=== PATIENT | female | born 1955 | race Caucasian/White ===

== ENCOUNTER 2018-05-24 10:15 | Inpatient (IN) | payer MEDICARE, OTHER ==
[2018-05-24] MEDS: NITROGLYCERIN 2% 1 GM OINT PKT TD (11:52)
[2018-05-24] MEDS: ASPIRIN 325 MG TAB PO (11:52)
[2018-05-24] MEDS ORDERED: ONDANSETRON 4 MG INJ IV ×2 (12:30→20:00)
[2018-05-24 12:52] LABS: ADD MAN DIFF? NO
[2018-05-24 12:55] LABS: BASOPHIL # 0.1 10^3/ul (0.0-0.1); BASOPHILS % 0.6 % (0.0-2.0); EOSINOPHILS # 0.1 10^3/ul (0.0-0.5); EOSINOPHILS % 1.6 % (0.0-7.0); HEMATOCRIT 42.1 % (37.0-47.0); HEMOGLOBIN 14.1 g/dl (12.0-16.0); LYMPHOCYTES # 2.1 10^3/ul (0.8-2.9); LYMPHOCYTES % 24.2 % (15.0-51.0); MEAN CORPUSCULAR HEMOGLOBIN 30.5 pg (29.0-33.0); MEAN CORPUSCULAR HGB CONC 33.5 g/dl (32.0-37.0); MEAN CORPUSCULAR VOLUME 91.1 fl (82.0-101.0); MONOCYTE # 0.6 10^3/ul (0.3-0.9); MONOCYTES % 6.8 % (0.0-11.0); NEUTROPHIL # 5.7 10^3/ul (1.6-7.5); NEUTROPHILS % 66.1 % (39.0-77.0); PLATELET COUNT 242 10^3/UL (140-415); RED BLOOD COUNT 4.62 10^6/ul (4.20-5.40); RED CELL DISTRIBUTION WIDTH 12.5 % (11.5-14.5)
[2018-05-24 12:55] LABS: WHITE BLOOD COUNT 8.7 10^3/ul (4.8-10.8)
[2018-05-24 13:17] LABS: ALANINE AMINOTRANSFERASE 101 IU/L (13-69); ALBUMIN 4.3 g/dl (3.3-4.9); ALBUMIN/GLOBULIN RATIO 1.34; ALKALINE PHOSPHATASE 102 IU/L (42-121); ANION GAP 13 (5-13); ASPARTATE AMINO TRANSFERASE 63 IU/L (15-46); BLOOD UREA NITROGEN 19 mg/dl (7-20); CALCIUM 9.7 mg/dl (8.4-10.2); CARBON DIOXIDE 28 mmol/L (21-31); CHLORIDE 99 mmol/L (97-110); CREATININE 0.68 mg/dl (0.44-1.00); Estimated GFR > 60 mL/min (>60); GLUCOSE 103 mg/dl (70-220); POTASSIUM 3.9 mmol/L (3.5-5.1); SODIUM 140 mmol/L (135-144); TOTAL PROTEIN 7.5 g/dl (6.1-8.1)
[2018-05-24 13:27] LABS: TROPONIN-I < 0.012 ng/ml (0.000-0.120)
[2018-05-24] MEDS: IOHEXOL 100 ML (14:27)
[2018-05-24] MEDS: SOD CHLORIDE 0.9% 100 ML (14:27)
[2018-05-24] MEDS: CEFTRIAXONE 1 GM/50 ML (PMX) 50 ML IVPB ×2 (14:47→14:53)
[2018-05-24] MEDS: AZITHROMYCIN 500MG/NS (PMX) 250 ML IV (15:30)
[2018-05-24] MEDS: ACETAMINOPHEN 325 MG TAB PO (18:27)
[2018-05-24] MEDS ORDERED: MAGNESIUM HYDROXIDE 30ML CUP PO (19:30)
[2018-05-24] MEDS ORDERED: NACL 0.9% 3 ML SYG IV (19:30)
[2018-05-24] MEDS ORDERED: ZOLPIDEM 5 MG TAB PO (19:30)
[2018-05-24 21:30] LABS: TROPONIN-I < 0.012 ng/ml (0.000-0.120)
[2018-05-24 21:37] LABS: ADD UMIC NO; UR ASCORBIC ACID 20 mg/dL (NEGATIVE); UR BILIRUBIN (Dip) NEGATIVE (NEGATIVE); UR BLOOD (Dip) NEGATIVE (NEGATIVE); UR CLARITY CLEAR (CLEAR); UR COLOR YELLOW (YELLOW); UR GLUCOSE (Dip) NEGATIVE (NEGATIVE); UR KETONES (Dip) NEGATIVE (NEGATIVE); UR LEUKOCYTE ESTERASE (Dip) NEGATIVE Leu/ul (NEGATIVE); UR NITRITE (Dip) NEGATIVE (NEGATIVE); UR SPECIFIC GRAVITY (Dip) 1.042 (1.003-1.030); UR TOTAL PROTEIN (Dip) NEGATIVE (NEGATIVE); UR UROBILINOGEN (Dip) NEGATIVE (NEGATIVE)
[2018-05-25] MEDS: ACETAMINOPHEN 325 MG TAB PO (00:29)
[2018-05-25 05:23] LABS: ADD MAN DIFF? NO
[2018-05-25 05:25] LABS: WHITE BLOOD COUNT 7.1 10^3/ul (4.8-10.8)
[2018-05-25 05:25] LABS: BASOPHILS % 0.4 % (0.0-2.0); EOSINOPHILS # 0.3 10^3/ul (0.0-0.5); EOSINOPHILS % 4.4 % (0.0-7.0); HEMATOCRIT 39.4 % (37.0-47.0); LYMPHOCYTES # 1.6 10^3/ul (0.8-2.9); LYMPHOCYTES % 23.1 % (15.0-51.0); MEAN PLATELET VOLUME 9.9 fl (7.4-10.4); MONOCYTE # 0.5 10^3/ul (0.3-0.9); MONOCYTES % 7.6 % (0.0-11.0); NEUTROPHIL # 4.6 10^3/ul (1.6-7.5); NEUTROPHILS % 64.2 % (39.0-77.0); PLATELET COUNT 213 10^3/UL (140-415); RED BLOOD COUNT 4.33 10^6/ul (4.20-5.40); RED CELL DISTRIBUTION WIDTH 12.8 % (11.5-14.5)
[2018-05-25 05:35] LABS: HEMOGLOBIN A1C 6.1 % (0-5.9)
[2018-05-25] MEDS ORDERED: METOPROLOL 5 MG INJ IV (06:00)
[2018-05-25 06:06] LABS: ALANINE AMINOTRANSFERASE 80 IU/L (13-69); ALBUMIN 3.5 g/dl (3.3-4.9); ALBUMIN/GLOBULIN RATIO 1.34; ALKALINE PHOSPHATASE 73 IU/L (42-121); ANION GAP 9 (5-13); ASPARTATE AMINO TRANSFERASE 41 IU/L (15-46); BILIRUBIN,INDIRECT 0.6 mg/dl (0-1.1); BILIRUBIN,TOTAL 0.6 mg/dl (0.2-1.3); BLOOD UREA NITROGEN 16 mg/dl (7-20); CALCIUM 9.1 mg/dl (8.4-10.2); CARBON DIOXIDE 30 mmol/L (21-31); CHLORIDE 104 mmol/L (97-110); CREATININE 0.59 mg/dl (0.44-1.00); Estimated GFR > 60 mL/min (>60); GLUCOSE 107 mg/dl (70-220); SODIUM 143 mmol/L (135-144); TOTAL PROTEIN 6.1 g/dl (6.1-8.1)
[2018-05-25 06:14] LABS: TROPONIN-I < 0.012 ng/ml (0.000-0.120)
[2018-05-25] MEDS: METOPROLOL (XL) 50 MG TAB PO ×2 (06:14→20:44)
[2018-05-25] MEDS ORDERED: METOPROLOL (XL) 50 MG TAB PO (09:00)
[2018-05-25] MEDS: DILTIAZEM 25 MG INJ IV (10:00)
[2018-05-25] MEDS ORDERED: DILTIAZEM-D5W 125MG/125ML DRIP 125 ML IV (10:00)
[2018-05-25] MEDS: ASPIRIN (EC) 81 MG TAB PO (10:23)
[2018-05-25] MEDS: FUROSEMIDE 20 MG INJ IV (10:24)
[2018-05-25 11:37] LABS: INR 1.05; PROTIME 13.8 Sec (11.9-14.9); PT RATIO 1.1
[2018-05-25 11:38] LABS: PARTIAL THROMBOPLASTIN TIME 27.2 Sec (23.0-35.0)
[2018-05-25] MEDS: MAGNESIUM SULFATE 2 GM/50 ML 50 ML IVPB (11:55)
[2018-05-25 11:57] LABS: TROPONIN-I < 0.012 ng/ml (0.000-0.120)
[2018-05-25] MEDS: LIDOCAINE 1% (MPF) 5 ML VIAL (14:12)
[2018-05-25 17:07] LABS: FLD PMN% 6.5 %; FLD RBC 6000 /uL; FLD WBC 420 /cmm
[2018-05-25 17:19] LABS: FLUID GLUCOSE 137 mg/dl; FLUID LD 189 U/L; FLUID TYPE PLEURAL FLUID
[2018-05-25 17:20] LABS: FLUID TOTAL PROTEIN < 2.0 g/dl; FLUID TYPE PLEURAL FLUID
[2018-05-25 17:27] LABS: FLD TYPE PLEURAL
[2018-05-25 17:27] LABS: FLD CLARITY HAZY; FLD COLOR YELLOW; FLD MN% 93.5 %
[2018-05-25] MEDS: AZITHROMYCIN 250 MG TAB PO (20:44)
[2018-05-25] MEDS: CEFTRIAXONE 1 GM/50 ML (PMX) 50 ML IVPB (20:48)
[2018-05-26] MEDS: ASPIRIN (EC) 81 MG TAB PO (08:39)
[2018-05-26] MEDS: METOPROLOL (XL) 50 MG TAB PO ×2 (08:40→20:00)
[2018-05-26] MEDS: AZITHROMYCIN 250 MG TAB PO (11:35)
[2018-05-26] MEDS: CEFTRIAXONE 1 GM/50 ML (PMX) 50 ML IVPB (11:36)
[2018-05-26] MEDS: ALBUTEROL/IPRATROPIUM (NEB) 3 ML AMP HHN (23:06)
[2018-05-26] MEDS: FUROSEMIDE 40 MG INJ IV (23:16)
[2018-05-27] MEDS: ASPIRIN (EC) 81 MG TAB PO (08:25)
[2018-05-27] MEDS: CEFTRIAXONE 1 GM/50 ML (PMX) 50 ML IVPB (08:25)
[2018-05-27] MEDS: METOPROLOL (XL) 50 MG TAB PO (08:26)
[2018-05-27] MEDS: AZITHROMYCIN 250 MG TAB PO (08:26)
== END 2018-05-27 10:00 | disposition home or self-care (01) | DRG 186 ==
LOC: 6WM 12:18 → E/R 10:15
PROC: 0W993ZX Drainage of Right Pleural Cavity, Percutaneous Approach, Diagnostic (ICD-10-PCS; principal; 2018-05-25)
DX: J90 Pleural effusion, not elsewhere classified (principal); J18.9 Pneumonia, unspecified organism; I48.92 Unspecified atrial flutter; I27.20 Pulmonary hypertension, unspecified; I44.1 Atrioventricular block, second degree; I48.2 Chronic atrial fibrillation; I05.0 Rheumatic mitral stenosis; I10 Essential (primary) hypertension; E78.5 Hyperlipidemia, unspecified; J45.909 Unspecified asthma, uncomplicated; G47.30 Sleep apnea, unspecified; R07.9 Chest pain, unspecified; Z85.3 Personal history of malignant neoplasm of breast; Z79.82 Long term (current) use of aspirin; Z90.13 Acquired absence of bilateral breasts and nipples
CPT/HCPCS: 32555; 36415; 71045; 71046; 71275; 80053; 81003; 82945; 83036; 83615; 84157; 84443; 84484; 85025; 85610; 85730; 87040-91; 87070; 87102; 87116; 88104; 88305; 89051; 93005; 93306; 94664; 99285-25; G0378

== ENCOUNTER → 2018-06-10 | Outpatient (CLI) | payer MEDICARE, OTHER | END | disposition home or self-care (01) | LOC: U/S 08:48 | DX: R94.5 Abnormal results of liver function studies (principal) | CPT/HCPCS: 76700 ==